=== PATIENT | female | born 1955 | race African-American/Black ===

== ENCOUNTER 2018-02-06 17:50 | Emergency (ER) | payer MEDICARE, MEDICAID ==
[2018-02-06 21:13] LABS: BASOPHILS 0.4 % (0-2); EOSINOPHILS 0.1 % (0-7); HEMATOCRIT 39.8 % (36.0-48.0); HEMOGLOBIN 13.6 g/dL (12-16); IMMATURE GRANULOCYTES 0.2 % (0-5); LYMPHOCYTES 20.1 % (15-50); MCH 32.3 pg (26.0-34.0); MCHC 34.2 g/dL (31.0-37.0); MCV 94.5 fL (80.0-100.0); MEAN PLATELET VOLUME 10.2 fL (7.4-10.4); NEUTROPHILS 72.2 % (40-80); RBC 4.21 10x6/uL (4.00-5.40); RDW 14.4 % (11.5-14.5)
[2018-02-06 21:22] LABS: INR 0.92 (0.85-1.17); PLATELET COUNT 211 10x3/uL (130-400); PROTIME 11.9 SECONDS (11.6-15.0)
[2018-02-06 21:24] LABS: D-DIMER-QUANTITATIVE 0.38 ug/mLFEU (0.20-0.54)
[2018-02-06 21:32] LABS: ALKALINE PHOSPHATASE 95 U/L (46-116); ALT (SGPT) 26 U/L (10-68); CALC OSMOLALITY 276 mosm/kg (275-300); CALCIUM 8.9 mg/dL (8.5-10.1); CHLORIDE - SERUM 106 mmol/L (98-107); CREATININE - SERUM 1.3 mg/dL (0.6-1.3); GLUCOSE 95 mg/dL (74-106); POTASSIUM - SERUM 3.9 mmol/L (3.5-5.1); PROTEIN - SERUM 6.1 g/dL (6.4-8.2); SODIUM 140 mmol/L (136-145); UREA NITROGEN 8 mg/dL (7-18); eGFR NON AFRICAN AMERICAN 44 mL/min (90-120)
[2018-02-06 21:45] LABS: CKMB 0.7 U/L (0.0-3.6); CREATINE KINASE 265 UL (21-215); PRO BNP 64 pg/mL (0-125); TROPONIN-I < 0.017 ng/mL (0.000-0.060)
== END 2018-02-06 23:02 | disposition home or self-care (01) ==
LOC: D.ER 17:50
PROVIDERS: Nurse Practitioner Family
DX: R51 Headache (principal); E05.00 Thyrotoxicosis with diffuse goiter without thyrotoxic crisis or storm; J01.90 Acute sinusitis, unspecified; I10 Essential (primary) hypertension; E03.9 Hypothyroidism, unspecified